=== PATIENT | female | born 1965 | race Caucasian/White ===

== ENCOUNTER 2016-08-15 07:25 | Emergency (ER) | payer BC ==
--- NOTE | 2016-09-14 21:14 | ER ---
ADMIT: 08/15/2016 RM/LOC: ER [facility] MR#: [id number] [facility] [id number] ANTHONY COOK [address] [place] [address] *CELL Emergency Room Report SEX: F AGE: 51 : 1965 DATE: 08/15/2016 This 51-year-old at the [place] swimming pool when she apparently had a seizure, however, she was able to get out of the pool with assistance. By the time squad arrived, they noticed "jerking in her arms." See T-sheet for remainder of history and physical. I did speak with Dr. Hahn, his nurse states she does have a history of pseudoseizures. [place] level was 0.73, valproic acid was 74.2. There are no signs of trauma noted on the patient like tongue laceration or biting of the oral mucosa. The patient is diagnosed with a pseudo-seizure, instructed to follow up with Dr. Hahn this coming week. Dru Brewster MD/ natalie JOB #: [id number] CC: Dru Brewster MD, Attending Physician
== END 2016-08-15 09:45 | disposition home or self-care (01) ==
LOC: ER 07:25
DX: R56.9 Unspecified convulsions (principal); E11.9 Type 2 diabetes mellitus without complications; I10 Essential (primary) hypertension; F31.9 Bipolar disorder, unspecified; Z88.8 Allergy status to other drugs, medicaments and biological substances